=== PATIENT | female | born 1930 | race Hispanic/Latino ===

== ENCOUNTER 2016-10-26 14:50 | Emergency (ER) | payer MEDICARE ==
[2016-10-26 15:45] VITALS: RESP 16
[2016-10-26 15:53] LABS: BASO # 0.1 K/uL (0.0-0.2); EOS # 0.2 K/uL (0.0-0.7); EOS % 2.1 % (0.0-4.0); LYMPH # 1.9 K/uL (1.0-4.3); LYMPH % 23.9 % (20.0-40.0); MEAN CELL VOLUME 85.1 fl (81.0-99.0); MEAN CORPUSCULAR HEMOGLOBIN 28.9 pg (27.0-31.0); MEAN CORPUSCULAR HGB CONC 33.9 g/dL (33.0-37.0); MEAN PLATELET VOLUME 8.1 fl (7.2-11.7); MONO # 0.5 K/uL (0.0-0.8); MONO % 6.8 % (0.0-10.0); NEUT # 5.3 K/uL (1.8-7.0); NEUT % 66.2 % (50.0-75.0); NRBC % 0.1 % (0.0-0.0); RED CELL DISTRIBUTION WIDTH 15.3 % (11.5-14.5)
--- NOTE | 2016-10-26 16:02 | ED PDOC ---
HPI: SOB/CHF/COPD Time Seen by Provider: 10/26/16 15:05 Chief Complaint (Nursing): Shortness Of Breath Chief Complaint (Provider): Shortness of breath History Per: Patient History/Exam Limitations: no limitations Onset/Duration Of Symptoms: Days (5) Current Symptoms Are (Timing): Still Present Additional Complaint(s): The patient is a 86yo female, past medical history of hypertension is sent to the ED by Dr. Meza her conservation of resources commissioner to rule out a possible pulmonary embolism. Patient reports for the past 5 days, she has had shortness of breath, worsening with deep breaths and exertion. She reports visiting her PCP Dr. Lyons who ordered a Chest x-ray and Dr. Meza read the results today, prompting the patient 's visit. She does report an "irritation" feeling to her chest but denies any calf pain, pedal edema, or recent long distance travels. The patient offers no additional medical complaints. Past Medical History Reviewed: Historical Data, Nursing Documentation, Vital Signs Vital Signs: Last Vital Signs Temp Pulse 71 10/26/16 18:26 Resp 16 10/26/16 15:44 BP Pulse Ox - Medical History PMH: HTN - Family History Family History: States: Unknown Family Hx - Social History Current smoker - smoking cessation education provided: No Alcohol: None Drugs: Denies - Home Medications Home Medications: Ambulatory Orders Medication Instructions Recorded Albuterol 0.083% [Albuterol 0.083% 3 ml IH Q6H PRN #30 neb 10/26/16 Inhal Joselin (2.5 mg/3 ml) UD] Albuterol HFA [Ventolin HFA 90 2 puff IH [id number] PRN #1 bottle 10/26/16 mcg/actuation (8 g)] Nebulizer [Compact Compressor 1 dev XX PRN PRN #1 dev 10/26/16 Nebulizer] - Allergies Allergies/Adverse Reactions: Allergies Allergy/AdvReac Type Severity Reaction Status Date / Time aspirin Allergy ANAPHYLAXIS Verified 10/26/16 14:54 Review of Systems ROS Statement: Except As Marked, All Systems Reviewed And Found Negative Cardiovascular: Positive for: Chest Pain ("irritation") Respiratory: Positive for: Shortness of Breath Musculoskeletal: Negative for: Other (pedal edema) Physical Exam - Reviewed Nursing Documentation Reviewed: Yes Vital Signs Reviewed: Yes - Physical Exam Appears: Positive for: Well, Non-toxic, No Acute Distress Head Exam: Positive for: ATRAUMATIC, NORMAL INSPECTION, NORMOCEPHALIC Skin: Positive for: Normal Color, Warm, DRY Eye Exam: Positive for: EOMI, Normal appearance, PERRL Neck: Positive for: Normal, Supple Cardiovascular/Chest: Positive for: Regular Rate, Rhythm Respiratory: Positive for: Decreased Breath Sounds (decreased breath sounds in left lung base). Negative for: Respiratory Distress Gastrointestinal/Abdominal: Positive for: Normal Exam, Soft. Negative for: Tenderness Back: Positive for: Normal Inspection Extremity: Positive for: Normal ROM. Negative for: Pedal Edema, Calf Tenderness , Deformity, Swelling Neurologic/Psych: Positive for: Alert, Oriented. Negative for: Motor/Sensory Deficits - Laboratory Results Result Diagrams: 10/26/16 15:40 10/26/16 15:40 - ECG ECG: Positive for: Interpreted By Me, Viewed By Me ECG Rhythm: Positive for: Normal QRS, Normal ST Segment, Sinus Rhythm. Negative for: ST/T Changes Rate: 71 Medical Decision Making Medical Decision Making: Time: 1519 Impression: Rule out pulmonary embolism Plan: -- CT Angio PE Protocol -- EKG -- PROBNP -- CMP -- Troponin I -- CBC -- D-Dimer[COAG] -- PTT -- Patient -- Erythrocyte sedimentation rate -- Chest x-ray Reassess Time: 1736 CT Chest IMPRESSION: No evidence of pulmonary embolus. Large hiatus hernia. Mild cardiomegaly and mild pulmonary vascular congestion. 4.5 millimeter nodule at the left lung base. Six-month follow-up reassessment is suggested. CT results discussed with patient who reports she has a long history of hiatal hernia. Time: 1800 Chest x-ray IMPRESSION: No acute infiltrate or pleural effusion. Mild elevation right hemidiaphragm is identified. A moderate to large hiatal hernia identified as well. Time: 1841 Dr. Meza [address] Dr. Lyons paged multiple times with no response; patient is standing outside and requesting to go home. Patient informed of all labs and imaging results today, given copy of bloodwork results. Patient informed to follow up with her PCP as well as conservation of resources commissioner. Scribe Attestation: Documented by Adelaida Real acting as a scribe for Clary Moore MD. Provider Attestation: All medical record entries made by the Scribe were at my direction and personally dictated by me. I have reviewed the chart and agree that the record accurately reflects my personal performance of the history, physical exam, medical decision making, and the department course for this patient. I have also personally directed, reviewed, and agree with the discharge instructions and disposition. Disposition - Clinical Impression Clinical Impression: Dyspnea on exertion - Disposition Referrals: [facility] [Outside] Mike Lyons MD [Family Provider] - Ramon Meza MD [Staff Provider] - Disposition: Routine/Home Disposition Time: 18:42 Condition: STABLE Prescriptions: Albuterol HFA [Ventolin HFA 90 mcg/actuation (8 g)] 2 puff IH [id number] PRN #1 bottle PRN Reason: Shortness Of Breath Albuterol 0.083% [Albuterol 0.083% Inhal Joselin (2.5 mg/3 ml) UD] 3 ml IH Q6H PRN # 30 neb PRN Reason: Shortness Of Breath Nebulizer [Compact Compressor Nebulizer] 1 dev XX PRN PRN #1 dev PRN Reason: Shortness Of Breath Instructions: Dyspnea (ED) Forms: [employer] (Jamaican)
[2016-10-26 16:03] LABS: ALB/GLOB RATIO 1.6 (1.0-2.1); ALKALINE PHOSPHATASE 84 U/L (38-126); ALT/SGPT 44 U/L (9-52); AST/SGOT 34 U/L (14-36); BILIRUBIN,TOTAL 0.3 mg/dl (0.2-1.3); BLOOD UREA NITROGEN 35 mg/dl (7-17); CALCIUM 10.6 mg/dL (8.4-10.2); CARBON DIOXIDE 25 mmol/L (22-30); CHLORIDE 102 mmol/L (98-107); GFR AFRICAN-AMERICAN > 60; GLUCOSE,RANDOM 95 mg/dL (65-105); POTASSIUM 4.1 MMOL/L (3.6-5.0); SODIUM 136 mmol/l (132-148); TOTAL PROTEIN 6.9 G/DL (6.3-8.2)
[2016-10-26 16:06] VITALS: PULSE 71
[2016-10-26 16:33] LABS: PARTIAL THROMBOPLASTIN TIME 28.9 Seconds (25.6-37.1)
[2016-10-26] MEDS ORDERED: Sodium Chloride 0.9% 50 ML IV ONE (16:53)
[2016-10-26] MEDS ORDERED: Iodixanol 320 MG/ML 100 ML BOTTLE IV ONE (16:53)
--- NOTE | 2016-10-26 17:39 | CT ---
PROCEDURE: CT Chest with contrast (Pulmonary Angiogram) HISTORY: SOB, pleuritic CP COMPARISON: None available. TECHNIQUE: Axial computed tomography images were obtained of the chest in the pulmonary arterial phase of enhancement. Coronal and sagittal reformatted images were created and reviewed. Intravenous contrast dose: 80 cc Visipaque 320 Radiation dose: Total exam DLP = 343.31 mGy-cm. This CT exam was performed using one or more of the following dose reduction techniques: Automated exposure control, adjustment of the mA and/or kV according to patient size, and/or use of iterative reconstruction technique. FINDINGS: PULMONARY ARTERIES: Unremarkable. No pulmonary embolism. AORTA: No acute findings. No thoracic aortic aneurysm. LUNGS: Mild pulmonary vascular congestion is noted. No evidence of pneumonia or mass lesion. There is 4.5 millimeter nodule at the left lung base. Mild emphysematous changes are noted predominant in the upper lobes. PLEURAL SPACES: Unremarkable. No effusion or pneuomothorax. HEART: Mild cardiomegaly is seen. . No significant pericardial effusion. LYMPH NODES: No lymphadenopathy. BONES, CHEST WALL: Diffuse osteopenia and degenerative changes. OTHER FINDINGS: Large hiatus hernia is noted. IMPRESSION: No evidence of pulmonary embolus. Large hiatus hernia. Mild cardiomegaly and mild pulmonary vascular congestion. 4.5 millimeter nodule at the left lung base. Six-month follow-up reassessment is suggested.
--- NOTE | 2016-10-26 18:03 | RAD ---
HISTORY: SOB COMPARISON: No prior. FINDINGS: LUNGS: No acute infiltrate is identified. There is elevation of the right hemidiaphragm from an indeterminate etiology. PLEURA: No significant pleural effusion identified, no pneumothorax apparent. CARDIOVASCULAR: Normal. OSSEOUS STRUCTURES: No significant abnormalities. VISUALIZED UPPER ABDOMEN: Normal. OTHER FINDINGS: Hiatal hernia is suggested at the inferior mediastinum at the midline. IMPRESSION: No acute infiltrate or pleural effusion. Mild elevation right hemidiaphragm is identified. A moderate to large hiatal hernia identified as well.
--- NOTE | 2016-10-27 11:28 | CARD ---
APPROVED REPORT EKG Measurement Heart [id number] [place] [id number] [id number] <Conclusion> Normal sinus rhythm Normal ECG
== END 2016-10-26 23:34 | disposition home or self-care (01) ==
LOC: H.ER 14:50
DX: R06.09 Other forms of dyspnea (principal); I10 Essential (primary) hypertension; J44.9 Chronic obstructive pulmonary disease, unspecified; K44.9 Diaphragmatic hernia without obstruction or gangrene
CPT/HCPCS: 71010; 71275; 80053; 83880; 84484; 85025; 85378; 85610; 85651; 85730; 93005; 99282; Q9967

== ENCOUNTER 2017-08-23 13:54 | Emergency (ER) | payer MEDICARE ==
--- NOTE | 2017-08-23 14:25 | ED PDOC ---
HPI: Hypertension/Hypotension Time Seen by Provider: 08/23/17 14:12 Chief Complaint (Nursing): Palpitations Chief Complaint (Provider): Palpitations History Per: Patient History/Exam Limitations: no limitations Additional Complaint(s): Pt presents with c/o intermittent palpitations X 3 weeks, occurs with exertion, associated with SOB. Denies fever, chest pain, cough. 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 Pt currently being weanes off Prednisone, h/o PMR and temporal arteritis. Spoke to Dr. Downs and advised to come to ED. Past Medical History Reviewed: Nursing Documentation, Vital Signs Vital Signs: Last Vital Signs Temp 98.0 F 08/23/17 13:59 Pulse 100 H 08/23/17 13:59 Resp 16 08/23/17 13:59 BP 181/91 H 08/23/17 13:59 Pulse Ox 98 08/23/17 13:59 - Medical History PMH: HTN Other PMH: PMR, temporal arteritis - Family History Family History: States: Unknown Family Hx - Social History Current smoker - smoking cessation education provided: No - Allergies Allergies/Adverse Reactions: Allergies Allergy/AdvReac Type Severity Reaction Status Date / Time aspirin Allergy ANAPHYLAXIS Verified 08/23/17 13:59 Review of Systems Constitutional: Negative for: Fever, Chills Cardiovascular: Positive for: Palpitations. Negative for: Chest Pain, Orthopnea , Paroxysmal Noc. Dyspnea, Edema, Light Headedness Respiratory: Positive for: Shortness of Breath, SOB with Exertion. Negative for : Cough, Sputum Gastrointestinal: Negative for: Nausea, Vomiting, Abdominal Pain, Diarrhea Skin: Negative for: Rash, Lesions Neurological: Positive for: Headache (Chronic L temporal). Negative for: Weakness, Numbness, Confusion, Seizures, Altered Mental Status, Dizziness Physical Exam - Reviewed Nursing Documentation Reviewed: Yes Vital Signs Reviewed: Yes - Physical Exam Appears: Positive for: Well, No Acute Distress (Speaking full sentences) Skin: Positive for: Normal Color, Warm, Dry Eye Exam: Positive for: Normal appearance, EOMI, PERRL Neck: Positive for: Normal Cardiovascular/Chest: Positive for: Regular Rate, Rhythm. Negative for: Tachycardia, Irregularly Irregular Respiratory: Positive for: Normal Breath Sounds. Negative for: Decreased Breath Sounds, Respiratory Distress Gastrointestinal/Abdominal: Positive for: Normal Exam Extremity: Positive for: Normal ROM. Negative for: Tenderness, Pedal Edema, Calf Tenderness, Deformity, Swelling Neurologic/Psych: Positive for: Alert, Oriented - Laboratory Results Result Diagrams: 08/23/17 15:30 08/23/17 15:30 - ECG Interpretation Of ECG: NSR @ 92, no ST-T changes. O2 Sat by Pulse Oximetry: 98 Pulse Ox Interpretation: Normal - Physician Consult Information Time Consulting Physican Contacted: 15:07 Physician Contacted: Colton Downs Outcome Of Conversation: States since EKG shows NSR, can discharge home with appt for Holter monitor. Medical Decision Making Medical Decision Makin yo female with intermittent palpitations. - labs - EKG - CXR 15:03 CXR FINDINGS: LUNGS: Definitive infiltrate appreciated. . Diminished inspiratory volume noted. PLEURA: No significant pleural effusion identified, no pneumothorax apparent. CARDIOVASCULAR: Stable cardiac silhouette. No pulmonary vascular congestion. A large hiatal hernia appears increased in size posterior to the heart at the inferior mediastinum. OSSEOUS STRUCTURES: No significant abnormalities. VISUALIZED UPPER ABDOMEN: Normal. OTHER FINDINGS: None. IMPRESSION: No acute infiltrate, pleural effusion or pneumothorax bilaterally. A large hiatal hernia appears increased in size at the inferior mediastinum. 16:30 Pt refusing to wait for TSH level. Disposition - Clinical Impression Clinical Impression: Palpitations - Disposition Referrals: Colton Downs MD [Staff Provider] - Mike Lyons MD [Family Provider] - Disposition: Routine/Home Disposition Time: 16:35 Condition: STABLE Additional Instructions: APPOINTMENT FOR HOLTER MONITOR TOMORROW @ 10 AM. Instructions: Palpitations Forms: [employer] (Albanian)
--- NOTE | 2017-08-23 15:04 | RAD ---
HISTORY: Palpitations COMPARISON: No prior. FINDINGS: LUNGS: Definitive infiltrate appreciated. . Diminished inspiratory volume noted. PLEURA: No significant pleural effusion identified, no pneumothorax apparent. CARDIOVASCULAR: Stable cardiac silhouette. No pulmonary vascular congestion. A large hiatal hernia appears increased in size posterior to the heart at the inferior mediastinum. OSSEOUS STRUCTURES: No significant abnormalities. VISUALIZED UPPER ABDOMEN: Normal. OTHER FINDINGS: None. IMPRESSION: No acute infiltrate, pleural effusion or pneumothorax bilaterally. A large hiatal hernia appears increased in size at the inferior mediastinum.
[2017-08-23 15:39] LABS: SQUAMOUS EPITHIAL < 1 /hpf (0-5); URINE BILIRUBIN NEGATIVE (NEGATIVE); URINE BLOOD NEGATIVE (NEGATIVE); URINE CLARITY CLEAR (Clear); URINE COLOR YELLOW (YELLOW); URINE GLUCOSE (UA) 50 mg/dL (Normal); URINE LEUKOCYTE ESTERASE NEG Leu/uL (Negative); URINE PROTEIN NEGATIVE (NEGATIVE); URINE UROBILINOGEN 0.2-1.0 mg/dL (0.2-1.0)
[2017-08-23 15:46] LABS: BASO % 0.3 % (0.0-2.0); EOS % 0.1 % (0.0-4.0); HEMOGLOBIN 13.1 g/dL (12.0-16.0); LYMPH # 1.1 K/uL (1.0-4.3); LYMPH % 12.1 % (20.0-40.0); MEAN CELL VOLUME 79.2 fl (81.0-99.0); MEAN CORPUSCULAR HEMOGLOBIN 25.5 pg (27.0-31.0); MEAN CORPUSCULAR HGB CONC 32.2 g/dL (33.0-37.0); MEAN PLATELET VOLUME 7.9 fl (7.2-11.7); MONO # 0.5 K/uL (0.0-0.8); MONO % 5.2 % (0.0-10.0); NEUT # 7.6 K/uL (1.8-7.0); NEUT % 82.3 % (50.0-75.0); RBC 5.11 Mil/uL (3.80-5.20); RED CELL DISTRIBUTION WIDTH 22.1 % (11.5-14.5); WHITE BLOOD COUNT 9.3 K/uL (4.8-10.8)
[2017-08-23 15:54] LABS: INR 0.9 (0.9-1.2); PARTIAL THROMBOPLASTIN TIME 24.9 Seconds (25.6-37.1); PROTHROMBIN TIME 9.8 Seconds (9.8-13.1)
[2017-08-23 16:03] LABS: ALB/GLOB RATIO 1.5 (1.0-2.1); ALBUMIN 4.1 g/dL (3.5-5.0); ALT/SGPT 33 U/L (9-52); AST/SGOT 26 U/L (14-36); BLOOD UREA NITROGEN 40 mg/dl (7-17); GFR AFRICAN-AMERICAN > 60; GFR NON-AFRICAN AMERICAN 60
[2017-08-23 16:42] VITALS: BP 148/76; PULSE 79; RESP 18; TEMP 97.8
--- NOTE | 2017-08-24 08:50 | CARD ---
APPROVED REPORT EKG Measurement Heart [id number] [place] 140P4 [id number] <Conclusion> Normal sinus rhythm Normal ECG
[2017-08-26 16:44] VITALS: O2SAT 98
== END 2017-08-23 16:41 | disposition home or self-care (01) ==
LOC: H.ER 13:54
DX: R00.2 Palpitations (principal); I10 Essential (primary) hypertension; I48.91 Unspecified atrial fibrillation; K44.9 Diaphragmatic hernia without obstruction or gangrene